=== PATIENT | male | born 1965 | race Caucasian/White ===

== ENCOUNTER 2024-08-06 10:22 | Outpatient (CLI) | payer OTHER, SELFPAY | END 2024-08-06 10:23 | disposition home or self-care (01) | PROVIDERS: PCP Internal Medicine; Visit Provider Internal Medicine | DX: E11.65 Type 2 diabetes mellitus with hyperglycemia (principal); Z79.84 Long term (current) use of oral hypoglycemic drugs | CPT/HCPCS: 80053; 80061; 82043; 82570 ==